=== PATIENT | female | born 1955 | race Caucasian/White ===

== ENCOUNTER 2016-05-31 16:23 | Emergency (ER) | payer MEDICAID ==
[~2016-05-31] VITALS: Ht 172.7 cm; Wt 77.1 kg
[2016-05-31] MEDS ORDERED: IBUPROFEN 600 MG TABLET PO ONE (16:45)
[2016-05-31] MEDS ORDERED: IBUPROFEN 600 MG TABLET ONE (16:53)
[2016-05-31 17:28] VITALS: BP 126/71
--- NOTE | 2016-05-31 17:28 | NUR ---
Patient discharged to home in stable conditon. Written and verbal after care instructions given. Patient verbalizes understanding of instructions.PT WALKS IN STEADY GAIT. PT ACCOMPANIED BY FAMILY MEMBER.
== END 2016-05-31 17:29 | disposition home or self-care (01) ==
LOC: ER 16:27
DX: S20.212A Contusion of left front wall of thorax, initial encounter (principal); S20.211A Contusion of right front wall of thorax, initial encounter; V89.2XXA Person injured in unspecified motor-vehicle accident, traffic, initial encounter; Y93.89 Activity, other specified; Y99.8 Other external cause status; Y92.89 Other specified places as the place of occurrence of the external cause
CPT/HCPCS: 71010; A4663